=== PATIENT | male | born 2005 ===

== ENCOUNTER 2023-07-07 16:22 | Emergency (ER) | payer SELFPAY ==
[2023-07-07 17:08] VITALS: BP 127/71; PULSE 63
== END 2023-07-07 17:27 | disposition home or self-care (01) ==
LOC: LL.ED 16:22
DX: M54.50 Low back pain, unspecified (principal); V86.55XA Driver of 3- or 4- wheeled all-terrain vehicle (ATV) injured in nontraffic accident, initial encounter
CPT/HCPCS: 72040; 72100; 99283; 99284